=== PATIENT | female | born 1980 | race Caucasian/White ===

== ENCOUNTER → 2023-05-25 11:03 | Outpatient (REF) | payer BC, SELFPAY ==
[2023-05-25 11:30] LABS: Hematocrit 37.9 % (37.0-47.0); Hemoglobin 13.6 g/dL (12.0-16.0); Mean Corp Hgb Conc. 35.9 g/dL (33.0-37.0); Mean Corpuscular Hgb 33.4 pg (27.0-31.0); Mean Corpuscular Volume 93.1 fL (81.0-99.0); Mean Platelet Volume 9.2 fL (7.4-10.4); Platelet Count 261 10^3/uL (130-400); Red Blood Cell Count 4.07 10^6/uL (4.20-5.40); Red Cell Dist. Width 11.8 % (11.5-14.5); White Blood Cell Count 4.3 10^3/uL (4.8-10.8)
[2023-05-25 11:32] LABS: Urine Albumin Negative (Neg - Trace); Urine Bilirubin Negative (Negative); Urine Character Clear (Clear); Urine Color Yellow; Urine Glucose Negative (Negative); Urine Ketone Negative (Negative); Urine Leukocyte Negative (Negative); Urine Nitrite Negative (Negative); Urine Occult Blood Negative (Negative); Urine Urobilinogen Negative (Neg - 1+)
[2023-05-25 11:54] LABS: ALT (SGPT) 26 U/L (0-35); AST (SGOT) 29 U/L (14-36); Albumin 4.2 g/dl (3.5-5.0); Alkaline Phosphatase 78 U/L (38-126); Blood Urea Nitrogen 14 mg/dl (7-17); Calcium 9.5 mg/dl (8.4-10.2); Carbon Dioxide 29 mmol/L (22-30); Chloride 103 mmol/L (98-107); Glucose 92 mg/dl (70-99); Potassium 4.3 mmol/L (3.5-5.1); Sodium 137 mmol/L (135-145); Total Bilirubin 0.8 mg/dl (0.2-1.3); Total Protein 6.9 g/dl (6.3-8.2); eGFR > 60.00
[2023-05-25 12:02] LABS: Complement C3 109 mg/dl (88-165)
[2023-05-25 12:14] LABS: Vitamin D, 25-OH*** 34.8 ng/mL (30-80)
[2023-05-25 12:28] LABS: TSH 1.69 uIU/ml (0.47-4.68)
[2023-05-25 13:17] LABS: Absolute Neutrophils -Man Diff 1.3 10^3/uL (1.4-6.5); Band Neutrophils 1 % (0-3); Lymphocytes 64 % (20-51); Monocytes 4 % (2-9); Normal RBC Morphology Yes; Platelets Checked Yes; Segmented Neutrophils 31 % (42-75); Total Cells Counted 100
[2023-05-27 01:34] LABS: ds-DNA Ab, IgG Reflex To Titer 4 IU (0-24)
== END ==
LOC: REG 11:03
PROVIDERS: ATTENDING PHYSICIAN Internal Medicine Rheumatology; FAMILY PHYSICIAN Internal Medicine
DX: E55.9 Vitamin D deficiency, unspecified (principal); G93.32 Myalgic encephalomyelitis/chronic fatigue syndrome; M35.9 Systemic involvement of connective tissue, unspecified; M79.7 Fibromyalgia; R51.9 Headache, unspecified; T78.3XXA Angioneurotic edema, initial encounter; Z11.1 Encounter for screening for respiratory tuberculosis; Z11.59 Encounter for screening for other viral diseases; Z68.26 Body mass index [BMI] 26.0-26.9, adult
CPT/HCPCS: 36415; 80053; 81003; 82306; 84443; 85025; 86140; 86160; 86225

== ENCOUNTER → 2023-07-07 17:15 | Outpatient (REF) | payer BC, SELFPAY ==
[2023-07-07 17:39] LABS: % Basophils 0.6 % (0-2); % Eosinophils 1.4 % (0-6); % Immature Granulocytes 0.2 % (0-0.5); % Lymphocytes 52.1 % (20.5-51.1); % Monocytes 7.2 % (1.7-9.3); % Neutrophils 38.5 % (42.2-75.2); Absolute Eosinophils 0.1 10^3/uL (0-0.7); Absolute Lymphocytes 2.6 10^3/uL (1.2-3.4); Absolute Monocytes 0.4 10^3/uL (0.1-0.6); Absolute Neutrophils 1.9 10^3/uL (1.4-6.5); Hematocrit 37.7 % (37.0-47.0); Mean Corp Hgb Conc. 34.5 g/dL (33.0-37.0); Mean Corpuscular Hgb 33.6 pg (27.0-31.0); Mean Corpuscular Volume 97.4 fL (81.0-99.0); Nucleated Red Blood Cells % 0 %; Platelet Count 245 10^3/uL (130-400); Red Blood Cell Count 3.87 10^6/uL (4.20-5.40); Red Cell Dist. Width 12.2 % (11.5-14.5)
== END ==
LOC: REG 17:15
PROVIDERS: ATTENDING PHYSICIAN Internal Medicine Rheumatology; FAMILY PHYSICIAN Internal Medicine
DX: D72.819 Decreased white blood cell count, unspecified (principal); M35.9 Systemic involvement of connective tissue, unspecified
CPT/HCPCS: 36415; 85025

== ENCOUNTER → 2024-01-19 17:43 | Outpatient (REF) | payer BC, SELFPAY | LOC: RAD 17:43 | PROVIDERS: ATTENDING PHYSICIAN Internal Medicine Rheumatology; FAMILY PHYSICIAN Internal Medicine | DX: M35.9 Systemic involvement of connective tissue, unspecified (principal) | CPT/HCPCS: 71046 ==

== ENCOUNTER → 2024-04-14 18:57 | Outpatient (REF) | payer BC, SELFPAY | LOC: MRI 3T 18:57 | PROVIDERS: ATTENDING PHYSICIAN Specialist; FAMILY PHYSICIAN Internal Medicine | DX: M62.81 Muscle weakness (generalized) (principal) | CPT/HCPCS: 70553; A9575 ==

== ENCOUNTER → 2024-10-02 16:55 | Outpatient (REF) | payer BC, SELFPAY | LOC: RAD 16:55 | PROVIDERS: ATTENDING PHYSICIAN Nurse Practitioner Adult Health; FAMILY PHYSICIAN Nurse Practitioner Family | DX: R00.0 Tachycardia, unspecified (principal); R55 Syncope and collapse; R42 Dizziness and giddiness; M35.1 Other overlap syndromes; H53.123 Transient visual loss, bilateral | CPT/HCPCS: 70450 ==

== ENCOUNTER → 2024-10-04 13:08 | Outpatient (REF) | payer BC, SELFPAY | LOC: RCS 13:08 | PROVIDERS: ATTENDING PHYSICIAN Nurse Practitioner Adult Health; FAMILY PHYSICIAN Nurse Practitioner Family | DX: R00.0 Tachycardia, unspecified (principal); R55 Syncope and collapse; R42 Dizziness and giddiness | CPT/HCPCS: 93225; 93226 ==

== ENCOUNTER → 2024-10-06 13:18 | Outpatient (REF) | payer BC, SELFPAY | LOC: RCS 13:18 | PROVIDERS: ATTENDING PHYSICIAN Nurse Practitioner Adult Health; FAMILY PHYSICIAN Nurse Practitioner Family | DX: R00.0 Tachycardia, unspecified (principal); R55 Syncope and collapse; R42 Dizziness and giddiness; M35.1 Other overlap syndromes; H53.123 Transient visual loss, bilateral; R07.89 Other chest pain | CPT/HCPCS: 93306 ==

== ENCOUNTER → 2024-10-11 14:50 | Outpatient (REF) | payer BC, SELFPAY | LOC: RAD 14:50 | PROVIDERS: ATTENDING PHYSICIAN Nurse Practitioner Adult Health | DX: R55 Syncope and collapse (principal); R00.0 Tachycardia, unspecified; R42 Dizziness and giddiness; M35.1 Other overlap syndromes; H53.123 Transient visual loss, bilateral; R07.89 Other chest pain | CPT/HCPCS: 93880 ==